=== PATIENT | male | born 1965 | race Two or more races ===

== ENCOUNTER 2016-03-14 12:54 | Emergency (ER) | payer SELFPAY | END 2016-03-14 16:40 | disposition home or self-care (01) | LOC: ED 12:54 | DX: F32.9 Major depressive disorder, single episode, unspecified (principal); F41.9 Anxiety disorder, unspecified; G47.00 Insomnia, unspecified; E11.9 Type 2 diabetes mellitus without complications; E78.00 Pure hypercholesterolemia, unspecified ==